=== PATIENT | female | born 1995 | race Caucasian/White ===

== ENCOUNTER 2019-10-21 10:08 | Inpatient (IN) ==
[2019-10-21 11:02] LABS: Basophils % 0.1 % (0.0-0.8); Eosinophils % 0.2 % (0.00-10.9); Hematocrit 34.2 VOL% (35.7-47.0); Hemoglobin 11.3 GM/DL (12.0-16.0); Immature Granulocytes % 0.7 %; Immature Granulocytes Absolute 0.07 #; Lymphocytes # 1.5 10*3/uL (1.4-4.0); Lymphocytes % 14.4 % (21.3-54.2); Mean Corpuscular Volume 85.9 FL (87-102); Monocytes % 6.5 % (1.7-12.7); Neutrophils % 78.1 % (38.7-73.9); Platelet Count 225 T/CUMM (130-400); Red Blood Count 3.98 MC/CUMM (3.8-5.5); Red Cell Distribution Width 12.6 % (9.3-17.3); White Blood Count 10.3 T/CUMM (4-12)
[2019-10-21 11:12] LABS: INR 0.9; Partial Thromboplastin Time 24.7 SECS (20.8-36.0)
[2019-10-21 11:30] LABS: Alanine Aminotransferase 18 U/L (13-56); Albumin 2.4 G/DL (3.4-5.0); Alkaline Phosphatase 149 U/L (45-117); Aspartate Amino Transferase 18 U/L (0-37); Bilirubin,Direct < 0.100 MG/DL (0.0-0.20); Bilirubin,Total < 0.39 MG/DL (0.2-1.0); Blood Urea Nitrogen 8 MG/DL (7-18); Calcium 8.5 MG/DL (8.5-10.1); Estimated Glom Filtration Rate 171 ML/MIN; Glucose 84 MG/DL (74-106); Osmolality,Calculated 264.2 MOS/KG (273-304); Total Protein 6.6 G/DL (6.4-8.3); Uric Acid 4.6 MG/DL (2.6-6.0)
[2019-10-21] MEDS ORDERED: ONDANSETRON 4 MG/2 ML VIAL IV PRN (12:19)
[2019-10-21] MEDS: LACTATED RINGERS 1,000 ML IV PRN ×2 (19:37→22:19)
[2019-10-21] MEDS ORDERED: PROMETHAZINE 25 MG/1 ML VIAL IM ONE (21:20)
[2019-10-21] MEDS ORDERED: CITRIC ACID/SODIUM CITRATE 30 ML UDCUP PO ONE (21:20)
[2019-10-21] MEDS ORDERED: NALOXONE 0.4 MG/ML VIAL IV PRN (21:20)
[2019-10-21] MEDS ORDERED: hydrOXYzine HCL 25 MG/1 ML VIAL IM PRN (21:20)
[2019-10-21] MEDS ORDERED: FAMOTIDINE 20 MG/2 ML VIAL IV ONE (21:20)
[2019-10-21] MEDS ORDERED: ePHEDrine 50 MG/ML AMP IV PRN (21:20)
[2019-10-21] MEDS ORDERED: diphenhydrAMINE 50 MG/1 ML VIAL IV PRN ×2 (21:20)
[2019-10-21] MEDS ORDERED: ACETAMINOPHEN 325 MG TABLET PO PRN (22:10)
[2019-10-21] MEDS: fentaNYL 2 MCG/ROPIV 0.2% EPID 100 ML EPIDURAL SCH (22:40)
[2019-10-22 00:45] LABS: Apearance,Urine CLEAR (Clear); Bilirubin,Urine Negative (Negative); Blood, Urine Negative (Negative); Glucose,Urine (UA) Negative (Negative); Ketones,Urine Negative (Negative); Mucus,Urine Occasional /LPF (Occasional); Nitrite,Urine Negative (Negative); Protein,Urine Negative; RBC,Urine <1 /HPF (0-4); Squamous Epithelial Cell,Urine Occasional /HPF (0-10); Urine Color Straw (Yellow); Urine Specific Gravity 1.003 (1.001-1.035); Urine Urobilinogen < 2.0 EU/DL (0.2-1.0); WBC,Urine <1 /HPF (0-6)
[2019-10-22] MEDS ORDERED: OXYTOCIN/LR 20 UNIT/1,000 ML BAG IV SCH (06:00)
[2019-10-22] MEDS: fentaNYL 2 MCG/ROPIV 0.2% EPID 100 ML EPIDURAL SCH (07:44)
[2019-10-22] MEDS ORDERED: LIDOCAINE 1% 50 ML VIAL ONE (10:37)
[2019-10-22] MEDS ORDERED: miSOPROStoL 200 MCG TABLET ONE (10:37)
[2019-10-22] MEDS ORDERED: TRANEXAMIC ACID 1,000 MG/10 ML VIAL ONE (10:37)
[2019-10-22] MEDS ORDERED: SODIUM CHLORIDE 0.9% 0 ML IV ONE (10:37)
[2019-10-22] MEDS ORDERED: miSOPROStoL 200 MCG TABLET RECTAL ONE (11:26)
[2019-10-22] MEDS ORDERED: OXYTOCIN/LR 30 UNIT/1,000 ML BAG IV ONE (11:28)
[2019-10-22] MEDS ORDERED: WITCH HAZEL PADS 100/JAR TOP PRN (11:58)
[2019-10-22] MEDS ORDERED: LANOLIN 50% CREAM 0.3 OZ TUBE TOP PRN (11:58)
[2019-10-22] MEDS ORDERED: BISACODYL 10 MG SUPP RECTAL PRN (11:58)
[2019-10-22] MEDS ORDERED: HYDROCORTISONE 2.5% RECTAL CREAM 30 GM TUBE TOP PRN (11:58)
[2019-10-22] MEDS ORDERED: BENZOCAINE 20%/MENTHOL 0.5% SPRAY 56 GM CAN TOP PRN (11:58)
[2019-10-22] MEDS ORDERED: ACETAMINOPHEN/CODEINE 300-30 MG TABLET PO PRN (12:00)
[2019-10-22] MEDS: IBUPROFEN 800 MG TABLET PO PRN (13:26)
[2019-10-22] MEDS ORDERED: METHYLDOPA 250 MG TABLET PO SCH (21:00)
[2019-10-22] MEDS: DOCUSATE SODIUM 100 MG CAPSULE PO SCH (21:49)
[2019-10-23 06:36] LABS: Basophils % 0.2 % (0.0-0.8); Eosinophils % 0.2 % (0.00-10.9); Hematocrit 28.5 VOL% (35.7-47.0); Hemoglobin 9.2 GM/DL (12.0-16.0); Immature Granulocytes % 0.4 %; Immature Granulocytes Absolute 0.03 #; Lymphocytes # 1.7 10*3/uL (1.4-4.0); Lymphocytes % 21.4 % (21.3-54.2); Mean Corpuscular HGB Conc 32.3 GM/DL (32-36); Mean Corpuscular Volume 86.1 FL (87-102); Mean Platelet Volume 11.9 FL (9.6-12.0); Monocytes % 9.8 % (1.7-12.7); Platelet Count 175 T/CUMM (130-400); Red Blood Count 3.31 MC/CUMM (3.8-5.5); Red Cell Distribution Width 12.8 % (9.3-17.3); White Blood Count 8.1 T/CUMM (4-12)
[2019-10-23] MEDS: IBUPROFEN 800 MG TABLET PO PRN ×2 (08:35→14:32)
[2019-10-23] MEDS: DOCUSATE SODIUM 100 MG CAPSULE PO SCH ×2 (10:00→21:02)
[2019-10-23 11:39] LABS: Basophils % 0.1 % (0.0-0.8); Eosinophils % 0.2 % (0.00-10.9); Hematocrit 29.6 VOL% (35.7-47.0); Hemoglobin 9.6 GM/DL (12.0-16.0); Immature Granulocytes % 0.4 %; Immature Granulocytes Absolute 0.04 #; Lymphocytes # 1.7 10*3/uL (1.4-4.0); Lymphocytes % 18.3 % (21.3-54.2); Mean Corpuscular HGB Conc 32.4 GM/DL (32-36); Mean Corpuscular Volume 88.9 FL (87-102); Mean Platelet Volume 10.9 FL (9.6-12.0); Platelet Count 186 T/CUMM (130-400); Red Blood Count 3.33 MC/CUMM (3.8-5.5); Red Cell Distribution Width 12.8 % (9.3-17.3); White Blood Count 9.3 T/CUMM (4-12)
[2019-10-23 11:49] LABS: INR 0.9; PT Patient Result 9.9 SECS (9.6-12.2); Partial Thromboplastin Time 25.7 SECS (20.8-36.0)
[2019-10-23 12:20] LABS: Alanine Aminotransferase 18 U/L (13-56); Alkaline Phosphatase 132 U/L (45-117); Aspartate Amino Transferase 21 U/L (0-37); Bilirubin,Direct < 0.100 MG/DL (0.0-0.20); Bilirubin,Total < 0.39 MG/DL (0.2-1.0); Blood Urea Nitrogen 8 MG/DL (7-18); Calcium 8.2 MG/DL (8.5-10.1); Estimated Glom Filtration Rate 137 ML/MIN; Glucose 72 MG/DL (74-106); Osmolality,Calculated 275.4 MOS/KG (273-304); Total Protein 5.5 G/DL (6.4-8.3); Uric Acid 5.7 MG/DL (2.6-6.0)
[2019-10-23 12:28] LABS: Apearance,Urine CLEAR (Clear); Bacteria,Urine Occasional /HPF (Few); Bilirubin,Urine Negative (Negative); Blood, Urine Large mg/dL (Negative); Glucose,Urine (UA) Negative (Negative); Ketones,Urine Negative (Negative); Nitrite,Urine Negative (Negative); Protein,Urine Negative; RBC,Urine <1 /HPF (0-4); Squamous Epithelial Cell,Urine Occasional /HPF (0-10); Urine Color Straw (Yellow); Urine Specific Gravity 1.001 (1.001-1.035); Urine Urobilinogen < 2.0 EU/DL (0.2-1.0); WBC,Urine 2 /HPF (0-6)
[2019-10-23] MEDS: LABETALOL 100 MG TABLET PO SCH ×2 (14:32→21:01)
[2019-10-24] MEDS: IBUPROFEN 800 MG TABLET PO PRN (03:50)
[2019-10-24 07:32] VITALS: BP 139/77
[2019-10-24] MEDS ORDERED: DIPH/TET/ACEL PERT BOOSTER VACCINE 0.5 ML VIAL IM ONE (08:30)
[2019-10-24] MEDS: DOCUSATE SODIUM 100 MG CAPSULE PO SCH (09:26)
[2019-10-24] MEDS: LABETALOL 100 MG TABLET PO SCH (09:26)
== END 2019-10-24 11:20 | disposition home or self-care (01) | DRG 807 ==
LOC: N.LDOUT 10:08 → N.LD 10:09 → N.OB 10-22 15:24
PROVIDERS: ADMIT Advanced Practice Midwife; ATTEND Obstetrics & Gynecology